=== PATIENT | female | born 1940 | race Caucasian/White ===

== ENCOUNTER 2016-08-05 07:04 | Observation (INO) | payer MEDICARE ==
[~2016-08-05] VITALS: Ht 154.9 cm; Wt 78.0 kg
[~2016-08-05 07:04] MED LIST: ASPI81TA82 PO; ATOR10TA PO; CO Q10CA PO; PACE100T2 PO; SENITAB PO; STOO100T PO
[2016-08-05 07:06] VITALS: BP_SYST 134; BP_SYST 220; BP_DIAS 88; BP_DIAS 99; PULSE 76; RESP 15; TEMP 97.9; O2SAT 97
[2016-08-05] MEDS ORDERED: ASPIRIN 81 MG CHEW TAB PO ONE (07:15)
[2016-08-05] MEDS ORDERED: SODIUM CHLORIDE 0.9% FLUSH 5 ML FLUSH IVF PRN ×2 (07:15→10:30)
[2016-08-05 07:19] VITALS: BP_SYST 134; BP_SYST 153; BP_SYST 220; BP_DIAS 74; BP_DIAS 88; BP_DIAS 99; PULSE 58; O2SAT 99
--- NOTE | 2016-08-05 07:36 | PD ---
HPI Chief Complaint: Chest Pain Time Seen by Provider: 07:09 Travel History International Travel<30 days: No Contact w/Intl Traveler<30days: No Traveled to known affect area: No History of Present Illness HPI 76-year-old female with a history of atrial fibrillation on amiodarone presents emergency department for evaluation of chest pain starting last night. Patient states she was lying in her bed when she first noticed it. She states occasionally she has discomfort to palpitation and she turns on her side and goes away in just a few moments. Today she was concerned because the palpitations didn't go away and then she started having chest pain in the left side of her chest hurting after shoulder and down her left arm with numbness and tingling. Denies any nausea vomiting shortness of breath. Patient states she had this one time in the past but was not this severe and she did get a stress test for about a year ago which was negative. She is followed by Dr. Alfred Ko. She denies any cough fever nausea vomiting diarrhea constipation. Patient took 3 baby aspirin prior to arrival. PFSH Past Medical History Hx Anticoagulant Therapy: Yes (162MG ASA PO DAILY) Atrial Fibrillation: Yes (dr ko) Heart Rhythm Problems: Yes (afib w/ rvr) Cancer: No Cardiovascular Problems: Yes (A-FIB) High Cholesterol: Yes Diabetes: Yes (diet controlled) Patient Takes Glucophage: No GERD: Yes Glaucoma: No Hepatitis: No Hiatal Hernia: No Hypertension: Yes Medical other: Yes (reflux,esophageal dilation back and neck problems) Respiratory: Yes (exercise induced asthma) Thyroid Disease: Yes Past Surgical History Endocrine Surgery: Yes (parathyroidectomy) Gynecologic Surgery: Yes (ECTOPIC ) Oral Surgery: Yes (t and a) Pacemaker: No Tonsillectomy: Yes (T&A) Other Surgery: Yes Social History Alcohol Use: No Tobacco Use: No Substance Use: No Allergies-Medications (Allergen,Severity, Reaction): Coded Allergies: Minocin (Unverified Allergy, Severe, extremely lethargic, 06/30/15) Sulfa (Unverified Allergy, Severe, tongue swells, 06/30/15) Reported Meds & Prescriptions Reported Meds & Active Scripts Active Reported Stool Softener (Miscellaneous Medication) 100 Mg Cap 100 Mg PO BID Co Q 10 (Coenzyme Q10 (Ubidecarenone)) 10 Mg Cap 1 Cap PO DAILY Senior Multivitamin Plus (Multiple Vitamins W/ Minerals) Plus Tab 1 Tab PO DAILY Pacerone 100 mg (Amiodarone HCl) 100 Mg Tab 1 Tab PO DAILY Aspir-81 (Aspirin) 81 Mg Tab 81 Mg PO DAILY Atorvastatin 10 mg (Atorvastatin Calcium) 10 Mg Tab 10 Mg PO DAILY Review of Systems Except as stated in HPI: all other systems reviewed are Neg Physical Exam Narrative GENERAL: Well-developed well-nourished no apparent distress SKIN: Warm and dry. HEAD: Atraumatic. Normocephalic. EYES: Pupils equal and round. No scleral icterus. No injection or drainage. ENT: No nasal bleeding or discharge. Mucous membranes pink and moist. NECK: Trachea midline. No JVD. CARDIOVASCULAR: Regular rate and rhythm. No murmur appreciated. 2+ bilateral equal pulses in all 4 extremities RESPIRATORY: No accessory muscle use. Clear to auscultation. Breath sounds equal bilaterally. GASTROINTESTINAL: Abdomen soft, non-tender, nondistended. Hepatic and splenic margins not palpable. MUSCULOSKELETAL: No obvious deformities. No clubbing. No cyanosis. No edema. NEUROLOGICAL: Awake and alert. No obvious cranial nerve deficits. Motor grossly within normal limits. Normal speech. PSYCHIATRIC: Appropriate mood and affect; insight and judgment normal. Data Data Last Documented VS Vital Signs Date Time Temp Pulse Resp B/P Pulse Ox O2 Delivery O2 Flow Rate FiO2 08/05/16 07:19 99 Room Air 2 08/05/16 07:19 58 154/73 153/74 08/05/16 07:06 97.9 15 Orders Electrocardiogram (08/05/16 07:15) Ckmb (Isoenzyme) Profile (08/05/16 07:15) Complete Blood Count With Diff (08/05/16 07:15) Comprehensive Metabolic Panel (08/05/16 07:15) Magnesium (Mg) (08/05/16 07:15) Prothrombin Time / Inr (Pt) (08/05/16 07:15) Act Partial Throm Time (Ptt) (08/05/16 07:15) Troponin I (08/05/16 07:15) Lipase (08/05/16 07:15) Chest, Single Ap (08/05/16 07:15) Ecg Monitoring (08/05/16 07:15) Bilateral Bp Monitoring (08/05/16 07:15) Iv Access Insert/Monitor (08/05/16 07:15) Oximetry (08/05/16 07:15) Oxygen Administration (08/05/16 07:15) Aspirin Chew (Aspirin Chew) (08/05/16 07:15) Sodium Chloride 0.9% Flush (Ns Flush) (08/05/16 07:15) Aspirin Chew (Aspirin Chew) (08/05/16 07:45) Admit Order (Ed Use Only) (08/05/16 ) Labs Laboratory Tests Test 08/05/16 08/05/16 07:50 09:10 White Blood Count 7.1 TH/MM3 Red Blood Count 4.69 MIL/MM3 Hemoglobin 13.0 GM/DL Hematocrit 39.0 % Mean Corpuscular Volume 83.3 FL Mean Corpuscular Hemoglobin 27.7 PG Mean Corpuscular Hemoglobin 33.3 % Concent Red Cell Distribution Width 12.8 % Platelet Count 258 TH/MM3 Mean Platelet Volume 8.4 FL Neutrophils (%) (Auto) 44.6 % Lymphocytes (%) (Auto) 44.8 % Monocytes (%) (Auto) 7.0 % Eosinophils (%) (Auto) 3.2 % Basophils (%) (Auto) 0.4 % Neutrophils # (Auto) 3.2 TH/MM3 Lymphocytes # (Auto) 3.2 TH/MM3 Monocytes # (Auto) 0.5 TH/MM3 Eosinophils # (Auto) 0.2 TH/MM3 Basophils # (Auto) 0.0 TH/MM3 CBC Comment DIFF FINAL Differential Comment Sodium Level 140 MEQ/L Potassium Level 3.9 MEQ/L Chloride Level 105 MEQ/L Carbon Dioxide Level 24.8 MEQ/L Anion Gap 10 MEQ/L Blood Urea Nitrogen 15 MG/DL Creatinine 0.96 MG/DL Estimat Glomerular Filtration 57 ML/MIN Rate Random Glucose 122 MG/DL Calcium Level 8.4 MG/DL Magnesium Level 2.3 MG/DL Total Bilirubin 0.4 MG/DL Aspartate Amino Transf 15 U/L (AST/SGOT) Alanine Aminotransferase 31 U/L (ALT/SGPT) Alkaline Phosphatase 92 U/L Total Creatine Kinase 85 U/L Troponin I LESS THAN 0.02 NG/ML Total Protein 7.6 GM/DL Albumin 3.6 GM/DL Lipase 89 U/L Prothrombin Time 10.6 SEC Prothromb Time International 1.0 RATIO Ratio Activated Partial 22.4 SEC Thromboplast Time MDM Medical Decision Making Medical Screen Exam Complete: Yes Emergency Medical Condition: Yes Interpretation(s) EKG shows sinus bradycardia rate of 55, CO interval is at the upper limits of normal at 200, intervals otherwise within normal limits. No concerning ST T changes. This is borderline EKG. Differential Diagnosis ACS, AMI, age fibrillation, GERD, pneumonia. Narrative Course Patient was roomed in emergency department, initial workup was negative, troponin negative. Discussed with the patient observation status for further Cardiologic workup and she is agreeable. She will be placed in the chest pain center. Diagnosis Primary Impression: CHEST PAIN, UNSPECIFIED Admitting Information Admitting Physician Requests: Observation Condition: Stable Riley Silva MD Aug 05, 2016 07:36
--- NOTE | 2016-08-05 07:44 | RADRPT ---
EXAM DATE/TIME: 08/05/2016 07:22 [facility] COMPARISON: CHEST SINGLE AP, June 30, 2015, 9:45. INDICATIONS : Chest pain radiating down arm starting today MEDICAL HISTORY : None. SURGICAL HISTORY : None. ENCOUNTER: Initial ACUITY: 1 day PAIN SCORE: 5/10 LOCATION: Left chest FINDINGS: A single view of the chest demonstrates the lungs to be symmetrically aerated without evidence of mas s, infiltrate or effusion. The cardiomediastinal contours are unremarkable. Osseous structures are intact. CONCLUSION: 1. No acute findings. No significant change. Wagner Lopez MD on August 05, 2016 at 7:41 Board Certified Radiologist. This report was verified electronically.
[2016-08-05] MEDS ORDERED: ASPIRIN 81 MG CHEW TAB CHEW ONE (07:45)
[2016-08-05 08:34] LABS: AUTOMATED NEUTROPHIL # 3.2 TH/MM3 (1.8-7.7); BASOPHIL % 0.4 % (0.0-2.0); EOSINOPHIL # 0.2 TH/MM3 (0-0.4); EOSINOPHIL % 3.2 % (0.0-4.0); HEMO FLAGS DIFF FINAL; LYMPH % 44.8 % (9.0-44.0); LYMPHOCYTE # 3.2 TH/MM3 (1.0-4.8); MEAN CELL VOLUME 83.3 FL (80.0-100.0); MEAN CORPUSCULAR HEMOGLOBIN 27.7 PG (27.0-34.0); MEAN CORPUSCULAR HGB CONC 33.3 % (32.0-36.0); NEUT % 44.6 % (16.0-70.0); PLATELET COUNT 258 TH/MM3 (150-450); RED BLOOD COUNT 4.69 MIL/MM3 (4.00-5.30); RED CELL DISTRIBUTION WIDTH 12.8 % (11.6-17.2); WHITE BLOOD COUNT 7.1 TH/MM3 (4.0-11.0)
[2016-08-05 08:49] LABS: ANION GAP 10 MEQ/L (5-15); AST (GOT) 15 U/L (15-37); BICARBONATE 24.8 MEQ/L (21.0-32.0); BLOOD UREA NITROGEN 15 MG/DL (7-18); CHLORIDE 105 MEQ/L (98-107); GLOMERULAR FILTRATION RATE 57 ML/MIN (>89); MAGNESIUM 2.3 MG/DL (1.5-2.5); POTASSIUM 3.9 MEQ/L (3.5-5.1); SODIUM (NA) 140 MEQ/L (136-145)
[2016-08-05 08:53] LABS: ALKALINE PHOSPHATASE 92 U/L (45-117); ALT (GPT) 31 U/L (10-53); TOTAL BILIRUBIN ADULT 0.4 MG/DL (0.2-1.0)
[2016-08-05 09:06] LABS: CREATINE KINASE 85 U/L (26-192)
--- NOTE | 2016-08-05 09:23 | EKG ---
Date Performed: 08/05/2016 Time Performed: 05:15:01 PTAGE: 76 years EKG: SINUS BRADYCARDIA BORDERLINE ECG No significant change from prior electrocardiogram. PREVIOUS TRACING : 06/30/2015 09.34 DOCTOR: Viktor Young Interpretating Date/Time 08/05/2016 09:22:49
[2016-08-05 09:28] LABS: APTT (PATIENT) 22.4 SEC (24.3-30.1); PROTHROMBIN TIME - PATIENT 10.6 SEC (9.8-11.6)
[2016-08-05] MEDS ORDERED: ACETAMINOPHEN/HYDROcodone 325 MG/7.5 MG TAB PO PRN (10:30)
[2016-08-05] MEDS ORDERED: ONDANSETRON HCL 4 MG/2 ML VIAL IV PRN (10:30)
[2016-08-05] MEDS ORDERED: ACETAMINOPHEN 500 MG CPLT PO PRN (10:30)
--- NOTE | 2016-08-05 10:32 | HHI.HP ---
[facility] Primary Care Physician Markus Mendoza Jr, MD Chief Complaint Chest pain History of Present Illness This is a 76-year-old female that presents to ED via private vehicle with her with history of paroxysmal atrial fibrillation and hyperlipidemia with a complaint of left-sided chest discomfort and outpatient symptoms that began last night. She states that she is lying on her left side in bed last night when she started having a left-sided pulsating squeezing sensation with also the sensation of heart beating fast. She rolled flat on her back and in the symptom went away. But soon later she developed a different discomfort left side of her chest that she's never had before. She states lasted a few minutes she rolled back onto her left side and that went away however the pulsating squeezing sensation recurred. She then rolled back flat on her back and other discomfort reoccurred. That continued to happen intermittently throughout the night lasting a few minutes at a time. The pulsating sensation that she had similar to when she would have her A. fib. She was not really worried about that. She is worried about this new discomfort in her left side of her chest. She had some shortness of breath. Denied nausea diaphoresis. She does follow Dr. Alfred Ko of cardiology and last saw him about 6 months ago and has a plan for him next Sunday for follow-up. She takes amiodarone for her A. fib. She is in sinus rhythm at this time. Last stress test was June last year was nonischemic. Review of Systems General: Patient denies fevers, chills recent, and recent travel HEENT: Patient denies headache, sore throat, difficulty swallowing. Cardiovascular: Has the chest discomfort as mentioned above. Patient had the sensation of heart was beating rapidly. No syncope. No diaphoresis. Respiratory: Patient was short of breath. Denies inspirational chest discomfort. Denies coughing wheezing or hemoptysis. GI: Patient denies nausea, vomiting, diarrhea, abdominal pain, bloody stools. Musculoskeletal: Patient denies joint pain or edema. Denies calf pain or edema. Neurovascular: Patient denies numbness, tingling, weakness in extremities. Denies headache. Endocrine: Denies polyuria and polydipsia. Hematologic: Denies easy bruising. Skin: Denies rash or itching. Past Family Social History Allergies: Coded Allergies: Minocin (Unverified Allergy, Severe, extremely lethargic, 06/30/15) Sulfa (Unverified Allergy, Severe, tongue swells, 06/30/15) Past Medical History Paroxysmal atrial fibrillation. Hyperlipidemia. Denies diabetes hypertension and known CAD. Past Surgical History Noncontributory. Reported Medications Reported Meds & Active Scripts Active Reported Stool Softener-Docusate (Docusate Sodium) 100 Mg Cap 100 Mg PO BID Co Q 10 (Coenzyme Q10 (Ubidecarenone)) 10 Mg Cap 1 Cap PO DAILY Senior Multivitamin Plus (Multiple Vitamins W/ Minerals) Plus Tab 1 Tab PO DAILY Pacerone 100 mg (Amiodarone HCl) 100 Mg Tab 1 Tab PO DAILY Aspir-81 (Aspirin) 81 Mg Tab 81 Mg PO DAILY Atorvastatin 10 mg (Atorvastatin Calcium) 10 Mg Tab 10 Mg PO DAILY Active Ordered Medications Current Medications Medications (Trade) Dose Ordered Sig/Gary Route Start Time Stop Time Status Last Admin (NS Flush) 2 ml UNSCH PRN IVF 08/05/16 07:15 08/05/16 07:36 Family History Her older sister has a stent. Social History Patient is a nonsmoker. Denies alcohol or illicit drugs. Physical Exam Vital Signs Vital Signs Date Time Temp Pulse Resp B/P Pulse Ox O2 Delivery O2 Flow Rate FiO2 08/05/16 07:19 99 Room Air 2 08/05/16 07:19 99 Room Air 08/05/16 07:19 58 154/73 99 Room Air 153/74 08/05/16 07:13 99 Room Air 08/05/16 07:06 220/88 08/05/16 07:06 97.9 76 15 134/99 97 Physical Exam GENERAL: This is a well-nourished, well-developed patient, in no apparent distress. Patient speaks in clear complete sentences. Patient is pleasant. Her is also at the bedside. HEENT: Head is atraumatic and normocephalic. Neck is supple without lymphadenopathy and trachea is midline. No JVD or carotid bruits. CARDIOVASCULAR: Regular rate and rhythm without murmurs, gallops, or rubs. RESPIRATORY: Clear to auscultation. Breath sounds equal bilaterally. No wheezes , rales, or rhonchi. Chest wall is nontender. No use of accessory muscles. GASTROINTESTINAL: Abdomen is nontender, nondistended. Abdomen soft. No obvious pulsatile mass or bruit. No CVA tenderness. Strong femoral pulses bilaterally. Normal bowel sounds in all quadrants. MUSCULOSKELETAL: Patient is moving upper and lower extremities freely. No calf tenderness or edema, no Homans sign. Strong pulses in upper and lower extremities. NEUROLOGICAL: Patient is alert and oriented. Cranial nerves 2-12 are grossly intact. No focal deficits and speech is clear. SKIN: No rash and turgor is normal. Laboratory Laboratory Tests Test 08/05/16 08/05/16 07:50 09:10 White Blood Count 7.1 Red Blood Count 4.69 Hemoglobin 13.0 Hematocrit 39.0 Mean Corpuscular Volume 83.3 Mean Corpuscular Hemoglobin 27.7 Mean Corpuscular Hemoglobin 33.3 Concent Red Cell Distribution Width 12.8 Platelet Count 258 Mean Platelet Volume 8.4 Neutrophils (%) (Auto) 44.6 Lymphocytes (%) (Auto) 44.8 Monocytes (%) (Auto) 7.0 Eosinophils (%) (Auto) 3.2 Basophils (%) (Auto) 0.4 Neutrophils # (Auto) 3.2 Lymphocytes # (Auto) 3.2 Monocytes # (Auto) 0.5 Eosinophils # (Auto) 0.2 Basophils # (Auto) 0.0 CBC Comment DIFF FINAL Differential Comment Sodium Level 140 Potassium Level 3.9 Chloride Level 105 Carbon Dioxide Level 24.8 Anion Gap 10 Blood Urea Nitrogen 15 Creatinine 0.96 Estimat Glomerular Filtration 57 Rate Random Glucose 122 Calcium Level 8.4 Magnesium Level 2.3 Total Bilirubin 0.4 Aspartate Amino Transf 15 (AST/SGOT) Alanine Aminotransferase 31 (ALT/SGPT) Alkaline Phosphatase 92 Total Creatine Kinase 85 Troponin I LESS THAN 0.02 Total Protein 7.6 Albumin 3.6 Lipase 89 Prothrombin Time 10.6 Prothromb Time International 1.0 Ratio Activated Partial 22.4 Thromboplast Time Result Diagram: 08/05/16 0750 08/05/16 0750 Imaging Last 24 hours Impressions Chest X-Ray 08/05/16714 Signed Impressions: Service Date/Time: Friday, August 05, 2016 07:22 - CONCLUSION: 1. No acute findings. No significant change. Wagner Lopez MD Course Initial EKG has sinus bradycardia rate of 55. There are nonspecific inferior T- wave changes. No significant ST depressions or elevations. Assessment and Plan Assessment and Plan * Atypical chest pain: Patient has had initial troponin and EKG. She will be seen by Dr. Olsen cardiology and the chest pain center. She will undergo a Lexiscan. She'll likely be discharged home if her stress test were to be nonischemic. At that point she would then follow-up with her primary care physician as well as her prototype engineer Dr. Alfred Ko. * Paroxysmal A. fib: Patient has been sinus rhythm. She should continue her current medications. * Hyperlipidemia: Continue current medication. Arthur Martin Aug 05, 2016 10:31
[2016-08-05] MEDS ORDERED: AMIODARONE 200 MG TAB PO SCH (10:45)
[2016-08-05] MEDS ORDERED: ATORVASTATIN 10 MG TAB PO SCH (10:45)
[2016-08-05] MEDS ORDERED: PILL SPLITTER OTHER PRN (10:45)
[2016-08-05 11:16] VITALS: BP 158/76; PULSE 54; RESP 20; TEMP 97.4; O2SAT 99
[2016-08-05] MEDS ORDERED: REGADENOSON INJ 0.4 MG/5 ML SYR ONE (12:25)
--- NOTE | 2016-08-05 13:40 | RADRPT ---
EXAM DATE/TIME: 08/05/2016 12:05 [facility] COMPARISON: No previous studies available for comparison. INDICATIONS : Left sided chest pain with dyspnea. Angina. DOSE: 25.4 mCi Tc99m Myoview at stress. 8.5 mCi Tc99m Myoview at rest. 0.4 mg Lexiscan STRESS SYMPTOMS: Dyspnea. EJECTION FRACTION: 69% MEDICAL HISTORY : Hypertension. Diabetes mellitus type 2. SURGICAL HISTORY : Parathyroidectomy. ENCOUNTER: Initial ACUITY: 1 day PAIN SCALE: 6/10 LOCATION: Left chest TECHNIQUE: The patient underwent pharmacologic stress with infusion of prescribed dose. Continuous ECG tracing was monitored during stress. Gated SPECT imaging was performed after stress and conventional SPECT i maging was performed at rest. The examination was performed on a SPECT/CT scanner, both attenuation and non-corrected datasets were reviewed. FINDINGS: DISTRIBUTION: The maximum perfused segment at stress is in the anterior wall. PERFUSION STUDY: The pattern of perfusion at stress is within normal limits. GATED STUDY: There is intact wall motion and thickening without hypokinetic or dyskinetic segments. CONCLUSION: Unremarkable myocardial perfusion examination. RISK CATEGORY: Low Alexander Khalil MD on August 05, 2016 at 13:38 Board Certified Radiologist. This report was verified electronically.
--- NOTE | 2016-08-05 13:47 | HHI.DCPOC ---
Discharge Care Plan Diagnosis: (1) Chest pain, atypical (2) Hyperlipidemia (3) Paroxysmal a-fib Goals to Promote Your Health * To prevent worsening of your condition and complications * To maintain your health at the optimal level Directions to Meet Your Goals Take your medications as prescribed Follow your dietary instruction Follow activity as directed Keep your appointments as scheduled Take your immunizations and boosters as scheduled If your symptoms worsen call your PCP, if no PCP go to Urgent Care Center or Emergency Room Smoking is Dangerous to Your Health. Avoid second hand smoke Call the 24-hour hour crisis hotline for domestic abuse at Arthur Martin Aug 05, 2016 13:47
--- NOTE | 2016-08-05 13:59 | TR ---
Date Performed: 08/05/2016 Time Performed: 12:36:16 DOCTOR: Rashid Olsen DRUG LIST: CLINICAL HISTORY: CHEST PAIN REASON FOR TEST: CHEST PAIN REASON FOR ENDING: OBSERVATION: CONCLUSION: Lexiscan stress test was performed under standard four minute protocol. Radionucl[place] e was injected one minute prior to ending the test. No electrocardiographic abormalities were present to suggest ischemia. Nuclear imaging and interpretation are pending. COMMENTS:
[2016-08-05] MEDS ORDERED: SODIUM CHLORIDE 0.9% FLUSH 5 ML FLUSH IVF SCH (21:00)
[2016-08-06] MEDS ORDERED: ASPIRIN 81 MG CHEW TAB PO SCH (09:00)
== END 2016-08-05 14:16 | disposition home or self-care (01) ==
LOC: NEPC 07:04 → NEDA 09:50 → NEPHCDU 11:10
DX: R07.9 Chest pain, unspecified (principal); I48.0 Paroxysmal atrial fibrillation; R00.2 Palpitations; R20.2 Paresthesia of skin; Z79.82 Long term (current) use of aspirin; E78.00 Pure hypercholesterolemia, unspecified; E11.9 Type 2 diabetes mellitus without complications; K21.9 Gastro-esophageal reflux disease without esophagitis; I10 Essential (primary) hypertension; J45.990 Exercise induced bronchospasm; R00.1 Bradycardia, unspecified; E78.5 Hyperlipidemia, unspecified
CPT/HCPCS: 71010; 78452; 80053; 82550; 83690; 83735; 84484; 85025; 85610; 85730; 93005; 93017; 99285; A9502; G0378; J2785